=== PATIENT | female | born 1960 | race Caucasian/White ===

== ENCOUNTER 2018-08-01 11:51 | Inpatient (IN) | payer OTHER ==
[2018-08-01 13:16] LABS: MODE ROOM AIR; MetHgb Venous 0.3 %; Sample Type Blood venous; Site VENOUS LINE; Venous COHb 1.4 %; Venous Fraction OxyHgb 80.4 %; Venous Oxygen Sat 81.8 mmHG (55.0-75.0); Venous Total Hemglobin 14.6 g/dl
[2018-08-01 13:23] LABS: WHITE BLOOD COUNT 7.6 10^3/ul (4.8-10.8)
[2018-08-01 13:23] LABS: ADD MAN DIFF? NO; BASOPHILS % 0.5 % (0.0-2.0); EOSINOPHILS # 0.2 10^3/ul (0.0-0.5); EOSINOPHILS % 2.1 % (0.0-7.0); HEMATOCRIT 40.9 % (37.0-47.0); HEMOGLOBIN 13.3 g/dl (12.0-16.0); LYMPHOCYTES # 1.6 10^3/ul (0.8-2.9); LYMPHOCYTES % 21.5 % (15.0-51.0); MEAN CORPUSCULAR HEMOGLOBIN 29.8 pg (29.0-33.0); MEAN CORPUSCULAR HGB CONC 32.5 g/dl (32.0-37.0); MEAN CORPUSCULAR VOLUME 91.5 fl (82.0-101.0); MEAN PLATELET VOLUME 10.4 fl (7.4-10.4); MONOCYTE # 0.5 10^3/ul (0.3-0.9); MONOCYTES % 7.1 % (0.0-11.0); NEUTROPHIL # 4.9 10^3/ul (1.6-7.5); NEUTROPHILS % 65.1 % (39.0-77.0); PLATELET COUNT 324 10^3/UL (140-415); RED BLOOD COUNT 4.47 10^6/ul (4.20-5.40); RED CELL DISTRIBUTION WIDTH 12.7 % (11.5-14.5)
[2018-08-01] MEDS: SOD CHLORIDE 0.9% 760 ML IV (13:23)
[2018-08-01 13:29] LABS: ADD UMIC NO; UR ASCORBIC ACID NEGATIVE (NEGATIVE); UR BILIRUBIN (Dip) NEGATIVE (NEGATIVE); UR BLOOD (Dip) NEGATIVE (NEGATIVE); UR CLARITY CLEAR (CLEAR); UR COLOR STRAW (YELLOW); UR GLUCOSE (Dip) 3+ mg/dL (NEGATIVE); UR KETONES (Dip) NEGATIVE (NEGATIVE); UR LEUKOCYTE ESTERASE (Dip) NEGATIVE Leu/ul (NEGATIVE); UR NITRITE (Dip) NEGATIVE (NEGATIVE); UR SPECIFIC GRAVITY (Dip) 1.026 (1.003-1.030); UR TOTAL PROTEIN (Dip) NEGATIVE (NEGATIVE); UR UROBILINOGEN (Dip) NEGATIVE (NEGATIVE)
[2018-08-01 13:42] LABS: PT RATIO 0.9
[2018-08-01 13:43] LABS: PARTIAL THROMBOPLASTIN TIME 28.9 Sec (23.0-35.0)
[2018-08-01 13:46] LABS: ANION GAP 6 (5-13); BLOOD UREA NITROGEN 13 mg/dl (7-20); CALCIUM 8.8 mg/dl (8.4-10.2); CARBON DIOXIDE 24 mmol/L (21-31); CHLORIDE 103 mmol/L (97-110); CREATININE 0.56 mg/dl (0.44-1.00); Estimated GFR > 60 mL/min (>60); PHOSPHORUS 3.1 mg/dl (2.5-4.9); POTASSIUM 4.2 mmol/L (3.5-5.1); SODIUM 133 mmol/L (135-144)
[2018-08-01 13:50] LABS: GLUCOSE 512 mg/dl (70-220)
[2018-08-01 13:55] LABS: TROPONIN-I < 0.012 ng/ml (0.000-0.120)
[2018-08-01] MEDS ORDERED: IBUPROFEN 800 MG TAB PO (14:00)
[2018-08-01 14:11] LABS: INR 0.87; PROTIME 11.9 Sec (11.9-14.9)
[2018-08-01 14:14] LABS: HEMOGLOBIN A1C 10.8 % (0-5.9)
[2018-08-01] MEDS: ONDANSETRON 4 MG INJ IV (14:20)
[2018-08-01] MEDS: SOD CHLORIDE 0.9% 2,000 ML IV (14:20)
[2018-08-01] MEDS: INSULIN LISPRO 100 UNIT/ML VIAL SC (14:29)
[2018-08-01] MEDS ORDERED: ACETAMINOPHEN 325 MG TAB PO (14:30)
[2018-08-01] MEDS ORDERED: morphine 2 MG INJ IV (15:00)
[2018-08-01] MEDS ORDERED: NACL 0.9% 3 ML SYG IV (15:00)
[2018-08-01] MEDS ORDERED: ONDANSETRON 4 MG INJ IV (15:00)
[2018-08-01] MEDS ORDERED: GLUCAGON 1 MG INJ IM (15:30)
[2018-08-01] MEDS ORDERED: DEXTROSE 50% 50 ML SYRINGE IV ×2 (15:30)
[2018-08-01] MEDS ORDERED: GLUCOSE GEL 15 GRAM TUBE PO ×2 (15:30)
[2018-08-01] MEDS ORDERED: GLUCOSE GEL 15 GRAM TUBE BUCCAL (15:30)
[2018-08-01] MEDS: HYDROCODONE/APAP (5/325) TAB PO (16:34)
[2018-08-01] MEDS: INSULIN ASPART [NOVOLOG] 3 ML PEN SC ×2 (18:00)
[2018-08-01] MEDS: PANTOPRAZOLE 40 MG INJ IV (18:00)
[2018-08-01] MEDS: FAMOTIDINE 20 MG INJ IV (20:12)
[2018-08-01] MEDS: SOD CHLORIDE 0.9% 1,000 ML IV (20:12)
[2018-08-02] MEDS: INSULIN ASPART [NOVOLOG] 3 ML PEN SC ×9 (00:05→20:44)
[2018-08-02] MEDS: INSULIN GLARGINE [LANTus] (100 UNITS/ML) SYG SC ×2 (00:14→20:45)
[2018-08-02] MEDS: SOD CHLORIDE 0.9% 1,000 ML IV ×3 (00:15→18:57)
[2018-08-02] MEDS: ACCU-CHEK XX (02:00)
[2018-08-02 05:45] LABS: ADD MAN DIFF? NO; BASOPHIL # 0.1 10^3/ul (0.0-0.1); BASOPHILS % 0.7 % (0.0-2.0); EOSINOPHILS # 0.2 10^3/ul (0.0-0.5); EOSINOPHILS % 2.7 % (0.0-7.0); HEMATOCRIT 37.1 % (37.0-47.0); HEMOGLOBIN 11.9 g/dl (12.0-16.0); LYMPHOCYTES # 2.3 10^3/ul (0.8-2.9); LYMPHOCYTES % 30.9 % (15.0-51.0); MEAN CORPUSCULAR HEMOGLOBIN 30.4 pg (29.0-33.0); MEAN CORPUSCULAR HGB CONC 32.1 g/dl (32.0-37.0); MEAN CORPUSCULAR VOLUME 94.6 fl (82.0-101.0); MEAN PLATELET VOLUME 10.9 fl (7.4-10.4); MONOCYTE # 0.7 10^3/ul (0.3-0.9); MONOCYTES % 9.8 % (0.0-11.0); NEUTROPHIL # 3.8 10^3/ul (1.6-7.5); NEUTROPHILS % 52.4 % (39.0-77.0); PLATELET COUNT 305 10^3/UL (140-415); RED BLOOD COUNT 3.92 10^6/ul (4.20-5.40)
[2018-08-02 05:45] LABS: WHITE BLOOD COUNT 7.3 10^3/ul (4.8-10.8)
[2018-08-02] MEDS: PANTOPRAZOLE 40 MG INJ IV ×2 (06:15→17:00)
[2018-08-02 06:20] LABS: ALANINE AMINOTRANSFERASE 218 IU/L (13-69); ALBUMIN 2.7 g/dl (3.3-4.9); ALBUMIN/GLOBULIN RATIO 1.12; ALKALINE PHOSPHATASE 132 IU/L (42-121); ANION GAP 8 (5-13); ASPARTATE AMINO TRANSFERASE 177 IU/L (15-46); BLOOD UREA NITROGEN 11 mg/dl (7-20); CALCIUM 8.2 mg/dl (8.4-10.2); CARBON DIOXIDE 23 mmol/L (21-31); CHLORIDE 106 mmol/L (97-110); CHOL/HDL RATIO 4.8 RATIO; CHOLESTEROL 140 mg/dl (100-200); CREATININE 0.47 mg/dl (0.44-1.00); Estimated GFR > 60 mL/min (>60); GLUCOSE 253 mg/dl (70-220); HDL CHOLESTEROL 29 mg/dl (37-92); LDL CHOLESTEROL,CALCULATED 78 mg/dl; MAGNESIUM 1.8 mg/dl (1.7-2.5); POTASSIUM 4.2 mmol/L (3.5-5.1); SODIUM 137 mmol/L (135-144); TOTAL PROTEIN 5.1 g/dl (6.1-8.1); TRIGLYCERIDES 164 mg/dl (0-149)
[2018-08-02 06:51] LABS: THYROID STIMULATING HORMONE 0.802 MIU/L (0.465-4.680)
[2018-08-02] MEDS: FAMOTIDINE 20 MG INJ IV ×3 (09:00→20:45)
[2018-08-02] MEDS: HYDROCODONE/APAP (5/325) TAB PO (20:41)
[2018-08-02] MEDS: ZOLPIDEM 5 MG TAB PO (20:49)
[2018-08-03] MEDS: ACCU-CHEK XX (02:07)
[2018-08-03] MEDS: PANTOPRAZOLE 40 MG INJ IV ×2 (05:00→17:38)
[2018-08-03] MEDS: SOD CHLORIDE 0.9% 1,000 ML IV ×2 (05:02→15:16)
[2018-08-03 05:08] LABS: ADD MAN DIFF? NO
[2018-08-03 05:24] LABS: BASOPHILS % 0.5 % (0.0-2.0); EOSINOPHILS # 0.2 10^3/ul (0.0-0.5); EOSINOPHILS % 2.5 % (0.0-7.0); HEMATOCRIT 38.6 % (37.0-47.0); HEMOGLOBIN 12.3 g/dl (12.0-16.0); LYMPHOCYTES # 2.8 10^3/ul (0.8-2.9); LYMPHOCYTES % 34.7 % (15.0-51.0); MEAN CORPUSCULAR HEMOGLOBIN 29.9 pg (29.0-33.0); MEAN CORPUSCULAR HGB CONC 31.9 g/dl (32.0-37.0); MEAN CORPUSCULAR VOLUME 93.7 fl (82.0-101.0); MEAN PLATELET VOLUME 10.7 fl (7.4-10.4); MONOCYTE # 0.7 10^3/ul (0.3-0.9); MONOCYTES % 8.2 % (0.0-11.0); NEUTROPHIL # 4.2 10^3/ul (1.6-7.5); NEUTROPHILS % 52.2 % (39.0-77.0); PLATELET COUNT 343 10^3/UL (140-415); RED BLOOD COUNT 4.12 10^6/ul (4.20-5.40); RED CELL DISTRIBUTION WIDTH 12.7 % (11.5-14.5)
[2018-08-03 05:24] LABS: WHITE BLOOD COUNT 8.1 10^3/ul (4.8-10.8)
[2018-08-03 05:51] LABS: ANION GAP 9 (5-13); BLOOD UREA NITROGEN 14 mg/dl (7-20); CALCIUM 8.6 mg/dl (8.4-10.2); CARBON DIOXIDE 24 mmol/L (21-31); CHLORIDE 105 mmol/L (97-110); CREATININE 0.49 mg/dl (0.44-1.00); Estimated GFR > 60 mL/min (>60); GLUCOSE 230 mg/dl (70-220); MAGNESIUM 1.7 mg/dl (1.7-2.5); SODIUM 138 mmol/L (135-144)
[2018-08-03] MEDS: HYDROCODONE/APAP (5/325) TAB PO ×2 (07:50→18:23)
[2018-08-03] MEDS: INSULIN ASPART [NOVOLOG] 3 ML PEN SC ×7 (08:31→20:28)
[2018-08-03] MEDS: FAMOTIDINE 20 MG INJ IV ×2 (08:37→20:28)
[2018-08-03] MEDS: ACETAMINOPHEN 325 MG TAB PO ×2 (11:48→23:45)
[2018-08-03] MEDS: INSULIN GLARGINE [LANTus] (100 UNITS/ML) SYG SC (20:27)
[2018-08-03] MEDS: ZOLPIDEM 5 MG TAB PO (20:37)
[2018-08-04] MEDS: SOD CHLORIDE 0.9% 1,000 ML IV ×2 (01:40→12:25)
[2018-08-04] MEDS: HYDROCODONE/APAP (5/325) TAB PO ×2 (01:43→08:47)
[2018-08-04] MEDS: ACCU-CHEK XX (02:15)
[2018-08-04 05:31] LABS: ADD MAN DIFF? NO
[2018-08-04 05:54] LABS: WHITE BLOOD COUNT 8.4 10^3/ul (4.8-10.8)
[2018-08-04 05:54] LABS: BASOPHILS % 0.5 % (0.0-2.0); EOSINOPHILS # 0.2 10^3/ul (0.0-0.5); EOSINOPHILS % 2.6 % (0.0-7.0); HEMATOCRIT 39.6 % (37.0-47.0); HEMOGLOBIN 12.6 g/dl (12.0-16.0); LYMPHOCYTES # 2.7 10^3/ul (0.8-2.9); LYMPHOCYTES % 31.8 % (15.0-51.0); MEAN CORPUSCULAR HEMOGLOBIN 30.1 pg (29.0-33.0); MEAN CORPUSCULAR HGB CONC 31.8 g/dl (32.0-37.0); MEAN CORPUSCULAR VOLUME 94.7 fl (82.0-101.0); MEAN PLATELET VOLUME 10.8 fl (7.4-10.4); MONOCYTE # 0.6 10^3/ul (0.3-0.9); MONOCYTES % 7.6 % (0.0-11.0); NEUTROPHIL # 4.7 10^3/ul (1.6-7.5); NEUTROPHILS % 55.2 % (39.0-77.0); PLATELET COUNT 359 10^3/UL (140-415); RED BLOOD COUNT 4.18 10^6/ul (4.20-5.40); RED CELL DISTRIBUTION WIDTH 12.9 % (11.5-14.5)
[2018-08-04] MEDS: PANTOPRAZOLE 40 MG INJ IV (05:57)
[2018-08-04 06:04] LABS: ANION GAP 10 (5-13); BLOOD UREA NITROGEN 14 mg/dl (7-20); CALCIUM 8.6 mg/dl (8.4-10.2); CARBON DIOXIDE 24 mmol/L (21-31); CHLORIDE 105 mmol/L (97-110); CREATININE 0.54 mg/dl (0.44-1.00); Estimated GFR > 60 mL/min (>60); GLUCOSE 254 mg/dl (70-220); MAGNESIUM 1.7 mg/dl (1.7-2.5); PHOSPHORUS 4.1 mg/dl (2.5-4.9); POTASSIUM 4.4 mmol/L (3.5-5.1); SODIUM 139 mmol/L (135-144)
[2018-08-04] MEDS: ACETAMINOPHEN 325 MG TAB PO (06:39)
[2018-08-04] MEDS: INSULIN ASPART [NOVOLOG] 3 ML PEN SC ×4 (07:52→12:22)
[2018-08-04] MEDS: FAMOTIDINE 20 MG INJ IV (08:47)
== END 2018-08-04 13:56 | disposition home or self-care (01) | DRG 639 ==
LOC: PP2 08-02 18:34 → FTE 11:51 → 6WM 14:08
PROVIDERS: Internal Medicine
PROC: 4A033R1 Measurement of Arterial Saturation, Peripheral, Percutaneous Approach (ICD-10-PCS; principal; 2018-08-02)
DX: E11.65 Type 2 diabetes mellitus with hyperglycemia (principal); J45.909 Unspecified asthma, uncomplicated; E78.00 Pure hypercholesterolemia, unspecified; I10 Essential (primary) hypertension; F17.200 Nicotine dependence, unspecified, uncomplicated; Z88.0 Allergy status to penicillin; Z79.4 Long term (current) use of insulin; T38.3X6A Underdosing of insulin and oral hypoglycemic [antidiabetic] drugs, initial encounter; Z91.128 Patient's intentional underdosing of medication regimen for other reason
CPT/HCPCS: 36415; 70450; 71045; 76705; 80048; 80053; 80061; 81003; 82803; 82962; 83036; 83735; 84100; 84443; 84484; 85025; 85610; 85730; 93005; 96360; 96361; 99285-25; G0378